=== PATIENT | male | born 2000 | race Caucasian/White ===

== ENCOUNTER 2025-01-02 14:45 | Emergency (ER) | payer OTHER, SELFPAY ==
--- NOTE | ~2025-01-02 | XR_ITS ---
EXAM/ PROCEDURE: XR hand LT min 3V - 01/02/2025 15:25 CDT HISTORY: 24 years old Male with l hand laceration COMPARISON: None available TECHNIQUE: Four view(s) FINDINGS/ IMPRESSION: There are no fractures or dislocations.Joint spaces are within normal limits. Reviewed, dictated and finalized at location A.
[2025-01-02 15:05] VITALS: BP 127/66; PULSE 85; RESP 16; TEMP 36.7; O2SAT 97
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
[2025-01-02] MEDS: TETANUS,DIPHTHERIA,AC PERTUSSIS ADULT (0.5 ML) BOOSTRIX IM (15:34)
[2025-01-02] MEDS: LIDOCAINE 1% LOCAL INJ 10 ML VIAL INFILTRATE (16:03)
--- OUTSIDE RECORDS SUMMARY | 2025-01-02 16:45 | XMS_ITS | Referral Summary ---
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 Will have MRI evaluation. 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 Gender Identity Not on file Sexual Orientation Not on file Last Filed Vital Signs Vital Sign Reading Time Taken Comments Blood Pressure 129/70 11/09/2020 11:32 AM CDT Pulse 56 11/09/2020 11:32 AM CDT Temperature 36.4 C (97.5 F) 11/09/2020 11:32 AM CDT Respiratory Rate - - Oxygen Saturation 98% 11/09/2020 11:32 AM CDT Inhaled Oxygen Concentration - - Weight 83.5 kg (184 lb) 11/09/2020 11:32 AM CDT Height 179.1 cm (5' 10.5) 11/09/2020 11:32 AM C DT Body Mass Index 26.03 11/09/2020 11:32 AM CDT Plan of Treatment Not on file Insurance [employer] CHOICE [employer] CHO[employer] Care Teams Report Checker Relationship Specialty Start Date End Date Physician, [place] [address] PCP - General 10/14/20
--- OUTSIDE RECORDS SUMMARY | 2025-01-02 16:45 | XMS_ITS | Clinical Summary ---
Author Organization [facility] Address [address] [place] [address] Phone Care Team Providers Care Food And Beverage Intern Name Role Phone Rudi Carrasco MD Primary Care Provider [phone] Allergies No known active allergies Medications No known medications Social History Tobacco Use Types Packs/Day Years Used Date Smoking Tobacco: Never Alcohol Use Standard Drinks/Week Comments No 0 (1 standard drink = 0.6 oz pur e alcohol) Sex and Gender Information Value Date Recorded Sex Assigned at Not on file Legal Sex Male 10:44 PM CDT Gender Identity Not on file Sexual Orientation Not on file Last Filed Vital Signs Vital Sign Reading Time Taken Comments Blood Pressure 110/55 02/26/2016 3:06 PM CDT Pulse 80 02/26/2016 3:06 PM CDT Temperature 36.8 C (98.2 F) 02/26/2016 3:06 PM CDT Respiratory Rate 14 02/26/2016 3:06 PM CDT Oxygen Saturation 99% 02/26/2016 3:06 PM CDT Inhaled Oxygen Concentration - - Weight 47.6 kg (105 lb) 02/26/2016 3:06 PM CDT Height 165.1 cm (5' 5) 11/07/2015 5:17 PM CDT Body Mass Index - - Plan of Treatment Health Maintenance Due Date Last Done Comments Hepatitis C Virus (HCV) Screening 2002 TdaP Immunization 2002 Human Papillomavirus (HPV) Immunization (1 - Male 3-dose series) 2017 Meningococcal B Immunization (1 of 2 - Standard) 2018 Hepatitis B Immunization (1 of 3 - 19+ 3-dose series) 2021 SARS-COV-2 Immunization ( - 2023- season) 2024 Influenza Immunization (#1) 2025 Respiratory Syncytial Virus (RSV) Immunization (Adult) (1 - 1-dose 75+ series) 2077 Meningococcal Immunization (ACWY) Aged Out No longer eligible based on patient's age to complete this topic Pneumococcal Immunization Combined Aged Out No longer eligible based on patient's age to complete this topic Rotavirus Immunization Aged Out No lo nger eligible based on patient's age to complete this topic Insurance [facility] [place] Care Teams Food And Beverage Intern Relationship Specialty Start Date End Date Rudi Carrasco MD [address] [place] [address] PCP - General Pediatrics 11/06/15
--- OUTSIDE RECORDS SUMMARY | 2025-01-02 16:45 | XMS_ITS | Clinical Summary ---
Author Organization [facility] [address] Address [address] [place] [address] Care Team Providers Care Electrical Systems Engineer Name Role Phone Physician, None Primary Care [...] occurrence. Will have MRI evaluation. Epistaxis 11/16/2015 Surgical History Surgery Date Site/Laterality Comments NOSE SURGERY 06/11/2015 - 06/10/2016 Left Family History Medical History Relation Name Comments Heart disease Maternal Grandfather Hypertension Maternal Grandfather Arthritis Maternal Grandmother Asthma Maternal Grandmother Breast cancer Maternal Grandmother Depression Maternal Grandmother Drug abuse Maternal Grandmother Hypertension Maternal Grandmother Depression Mother Drug abuse Mother's Brother Small Fiber neuropathy Other Aunt Depression Paternal Grandmother Relation Name Status Comments Maternal Grandfather Maternal Grandmother Mother Mother's Brother Other Aunt Alive Paternal Grandmother Social History Tobacco Use Types Packs/Day Years Used Date Smoking Tobacco: Never Personal Safety Answer Date Recorded Getting School Help Needed Not on file 08/24 Sex and Gender Information Value Date Recorded Sex Assigned at Not on file 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
[2025-01-02] MEDS: CEPHALEXIN 500 MG CAPSULE PO (17:02)
[2025-01-02 17:04] VITALS: BP 117/56; PULSE 62; RESP 16; O2SAT 98
== END 2025-01-02 17:05 | disposition home or self-care (01) ==
LOC: ANHED 16:44
PROVIDERS: Emergency Provider Emergency Medicine
DX: S61.412A Laceration without foreign body of left hand, initial encounter (principal); Z23 Encounter for immunization; W26.8XXA Contact with other sharp object(s), not elsewhere classified, initial encounter
CPT/HCPCS: 12002; 73130; 90471; 90715; 99284; A9270; J2003